=== PATIENT | female | born 1985 | race American Indian/Alaskan Native ===

== ENCOUNTER 2018-06-02 08:39 | Day surgery (SDC) | payer MEDICAID ==
[2018-06-02] MEDS ORDERED: Lactated Ringer's 500 ML IV ONE (09:34)
[2018-06-02] MEDS ORDERED: Propofol 10 mg/ml Inj (20 ML) ONE (12:07)
[2018-06-02 12:55] VITALS: TEMP 97; O2SAT 100
[2018-06-02 13:16] VITALS: BP 100/58; PULSE 72; RESP 21
== END 2018-06-02 13:33 | disposition home or self-care (01) ==
LOC: H.ENDO 08:39
PROVIDERS: ATTEND Internal Medicine Gastroenterology
DX: K63.5 Polyp of colon (principal); K62.5 Hemorrhage of anus and rectum; K29.70 Gastritis, unspecified, without bleeding; K64.8 Other hemorrhoids; K31.89 Other diseases of stomach and duodenum; R13.10 Dysphagia, unspecified; R10.13 Epigastric pain
CPT/HCPCS: 43239; 45380; 88305; J2001; J2704; J7120